=== PATIENT | male | born 1965 | race Caucasian/White ===

== ENCOUNTER 2023-05-19 15:41 | Inpatient (IN) | payer SELFPAY ==
[~2023-05-19] VITALS: Ht 170.2 cm; Wt 76.7 kg
[2023-05-19 15:54] VITALS: BP 107/66; PULSE 96; RESP 18; TEMP 98.1; O2SAT 98
[2023-05-19] MEDS ORDERED: LORazepam 2 MG/ML VIAL IVP ONE ×3 (15:55→18:05)
[2023-05-19] MEDS ORDERED: LORazepam 2 MG/ML VIAL ONE (15:58)
[2023-05-19] MEDS ORDERED: NACL 0.9% 1,000 ML IV ONE (16:20)
[2023-05-19] MEDS ORDERED: HALOPERIDOL IM 5 MG/ML VIAL IM ONE (17:35)
[2023-05-19] MEDS ORDERED: diphenhydrAMINE 50 MG/ML VIAL IVP ONE (18:05)
[2023-05-19 18:55] LABS: BILIRUBIN,URINE NEGATIVE (NEGATIVE); BLOOD, URINE TRACE-I (NEGATIVE); COLOR,URINE YELLOW (YELLOW); LEUKOCYTE ESTERASE ,URINE NEGATIVE (NEGATIVE); NITRITE, URINE NEGATIVE (NEGATIVE); PROTEIN,URINE TRACE (NEGATIVE); UGLUCOSE NEGATIVE (NEGATIVE); UROBILINOGEN,URINE 0.2 EU/dL (0.2 - 1)
[2023-05-19 19:13] LABS: AMPHETAMINE, URINE NEGATIVE ng/ml (NEG <=1000); BARBITURATE, URINE POSITIVE ng/ml (NEG <=200); BENZODIAZEPINE, URINE POSITIVE ng/mL (NEG <=200); CANNABINOID, URINE POSITIVE ng/mL (NEG <=50); COCAINE, URINE NEGATIVE ng/mL (NEG <=300); OPIATE, URINE NEGATIVE ng/mL (NEG <=2000); PHENCYCLIDINE SCREEN,URINE NEGATIVE ng/mL (NEG <=25)
[2023-05-19 19:14] LABS: APPEARANCE,URINE CLOUDY (CLEAR)
[2023-05-19 19:23] LABS: ALANINE AMINOTRANSFERASE 22 U/L (12-78); ALBUMIN 3.9 g/dL (3.4-5.0); ALCOHOL, BLOOD < 3 mg/dL (<10); ALKALINE PHOSPHATASE 148 U/L (50-136); ANION GAP 15.9 (8-16); ASPARTATE AMINOTRANSFERASE 29 U/L (15-37); CALCIUM 8.6 mg/dL (8.5-10.1); CARBON DIOXIDE 22.1 mmol/L (21-32); CHLORIDE 106 mmol/L (98-107); GFR ARICAN-AMERICAN 99 mL/min (>90); GFR NON ARICAN-AMERICAN 82 mL/min (>90); GLUCOSE 110 mg/dL (74-106); LIPASE 21 U/L (16-77); SODIUM SERUM 140 mmol/L (136-145); TOTAL BILIRUBIN 0.3 mg/dL (0.0-1.0); TOTAL PROTEIN, SERUM 7.5 g/dL (6.4-8.2); UREA NITROGEN, BLOOD 10 mg/dL (7-18)
[2023-05-19 19:27] LABS: ACETAMINOPHEN < 0.5 ug/ml (10-30); SALICYLATE < 2.8 mg/dL (2.8-20.0)
[2023-05-19 19:30] LABS: BASOPHILS % (AUTO) 0.1 % (0.0-2.0); HEMATOCRIT 41.9 % (36-52); HEMOGLOBIN 13.6 g/dL (12.0-18.0); LYMPHOCYTES # (AUTO) 0.7 K/uL (2.0-11.5); LYMPHOCYTES % (AUTO) 4.3 % (20.5-51.1); MEAN CORPUSCULAR HEMOGLOBIN 29 pg (27-31); MEAN CORPUSCULAR HGB CONC 32 g/dL (33-37); MEAN CORPUSCULAR VOLUME 88.5 fL (80-94); MONOCYTES # (AUTO) 0.9 K/uL (0.8-1.0); MONOCYTES % (AUTO) 5.2 % (1.7-9.3); NEUTROPHILS # (AUTO) 15.5 K/uL (1.8-7.7); NEUTROPHILS % (AUTO) 90.4 % (42.2-75.2); PLATELET COUNT (AUTO) 205 K/uL (140-450); RED BLOOD CELL COUNT(AUTO) 4.74 MIL/uL (4.20-6.10); WHITE BLOOD COUNT (AUTO) 17.2 K/uL (4.8-10.8)
[2023-05-19 19:38] LABS: BACTERIA,URINE 1+ /HPF (None Seen); MUCUS,URINE 1+ /LPF (None Seen); RBC,URINE 0-5 /HPF (0-5); SQUAMOUS EPITHELIAL CELL,UR 0-3 (FEW) /LPF (0-3 (FEW)); WBC,URINE 0-5 /HPF (0-5)
[2023-05-19 19:41] LABS: OTHER CRYSTALS,URINE CALCIUM CARBONATE 1+ /HPF (None Seen); URINE AMORPHOUS URATE 2+ /HPF (None Seen)
[2023-05-19] MEDS ORDERED: NACL 0.9% IV ONE (20:00)
[2023-05-19] MEDS ORDERED: PHENYTOIN IV ONE (20:00)
[2023-05-19] MEDS ORDERED: PHENYTOIN 250 MG/5 ML VIAL IV ONE (20:24)
[2023-05-19 23:48] VITALS: BP 125/69; PULSE 70; PULSE 71; RESP 18; TEMP 98.2; O2SAT 96; O2SAT 97
[2023-05-19 23:49] VITALS: PULSE 73
[2023-05-20 00:03] VITALS: PULSE 82
[2023-05-20] MEDS: NACL 0.9% 1,000 ML IV SCH ×2 (01:54→09:10)
[2023-05-20 04:00] VITALS: BP 127/69; PULSE 77; PULSE 82; PULSE 91; RESP 18; TEMP 98.7; O2SAT 97
[2023-05-20 08:00] VITALS: BP 113/70; PULSE 70; PULSE 74; RESP 17; TEMP 98.3; O2SAT 98
[2023-05-20] MEDS ORDERED: PHEN100C3 PO (09:53)
[2023-05-20 12:00] VITALS: BP 122/68; PULSE 68; PULSE 73; RESP 19; TEMP 98.9; O2SAT 96
[2023-05-20 15:46] VITALS: BP 122/68; PULSE 73; RESP 19; TEMP 98.9
== END 2023-05-20 16:42 | disposition home or self-care (01) | DRG 101 ==
LOC: MED 15:41 → MTU 23:10
PROVIDERS: ADMIT Family Medicine; ATTEND Family Medicine
DX: G40.409 Other generalized epilepsy and epileptic syndromes, not intractable, without status epilepticus (principal)
CPT/HCPCS: 36415; 70450; 71045; 80053; 80185; 80305; 81001; 83690; 84484; 85025; 87081; 87086; 93005; 96365; 96372; 96375; 96376; 99291; G0480; G0482; J1165; J1200; J1630; J2060; Q0092

== ENCOUNTER 2023-11-20 16:24 | Emergency (ER) | payer SELFPAY ==
[~2023-11-20] VITALS: Ht 167.6 cm; Wt 70.3 kg
[~2023-11-20 16:24] MED LIST: PHEN100C3 PO
[2023-11-20 16:44] VITALS: PULSE 80; RESP 18; TEMP 98; O2SAT 99
[2023-11-20 17:42] LABS: BASOPHILS # (AUTO) 0.1 K/uL (0.00-0.22); BASOPHILS % (AUTO) 1.2 % (0.0-2.0); EOSINOPHILS # (AUTO) 0.2 K/uL (0-0.4); EOSINOPHILS % (AUTO) 2.4 % (0.0-4.0); HEMATOCRIT 40.3 % (36-52); MEAN CORPUSCULAR HEMOGLOBIN 28 pg (27-31); MEAN CORPUSCULAR HGB CONC 32 g/dL (33-37); MEAN CORPUSCULAR VOLUME 86.9 fL (80-94); MONOCYTES # (AUTO) 0.7 K/uL (0.8-1.0); MONOCYTES % (AUTO) 6.9 % (1.7-9.3); NEUTROPHILS # (AUTO) 7.3 K/uL (1.8-7.7); NEUTROPHILS % (AUTO) 70.5 % (42.2-75.2); PLATELET COUNT (AUTO) 191 K/uL (140-450); RED BLOOD CELL COUNT(AUTO) 4.64 MIL/uL (4.20-6.10); RED CELL DISTRIBUTION WIDTH 14.7 % (11.6-13.7); WHITE BLOOD COUNT (AUTO) 10.3 K/uL (4.8-10.8)
[2023-11-20 17:56] LABS: ANION GAP 19.9 (8-16); CALCIUM 8.9 mg/dL (8.5-10.1); CARBON DIOXIDE 19.8 mmol/L (21-32); CREATININE 0.9 mg/dL (0.6-1.3); POTASSIUM 3.7 mmol/L (3.5-5.1)
[2023-11-20 18:52] VITALS: BP 110/71; PULSE 78; RESP 16; TEMP 98; O2SAT 99
[2023-11-21] MEDS ORDERED: PHEN100C3 PO (15:30)
== END 2023-11-20 18:52 | disposition home or self-care (01) ==
LOC: MED 16:24
DX: G40.509 Epileptic seizures related to external causes, not intractable, without status epilepticus (principal); Z86.39 Personal history of other endocrine, nutritional and metabolic disease; Z79.899 Other long term (current) drug therapy
CPT/HCPCS: 36415; 80048; 85025; 99283

== ENCOUNTER 2023-11-20 23:31 | Inpatient (IN) | payer SELFPAY ==
[~2023-11-20] VITALS: Ht 160 cm; Wt 63.5 kg
[2023-11-20 23:37] VITALS: BP 130/79; PULSE 72; RESP 20; TEMP 97.6; O2SAT 99
[2023-11-20 23:45] VITALS: O2SAT 98
[2023-11-20] MEDS ORDERED: levETIRAcetam 100 MG/ML VIAL IV ONE (23:50)
[2023-11-21] VITALS (7 sets, daily range): BP systolic 108–122; BP diastolic 60–65; PULSE 68–113; RESP 16–18; TEMP 97.6–98.3; O2SAT 94–98
[2023-11-21] MEDS: levETIRAcetam 500 MG in NACL 0.9% 100 ML IV ONE (00:13)
[2023-11-21 00:19] LABS: BASOPHILS % (AUTO) 0.4 % (0.0-2.0); EOSINOPHILS % (AUTO) 0.4 % (0.0-4.0); HEMATOCRIT 41.4 % (36-52); HEMOGLOBIN 13.7 g/dL (12.0-18.0); LYMPHOCYTES # (AUTO) 0.9 K/uL (2.0-11.5); LYMPHOCYTES % (AUTO) 8.3 % (20.5-51.1); MEAN CORPUSCULAR HEMOGLOBIN 29 pg (27-31); MEAN CORPUSCULAR HGB CONC 33 g/dL (33-37); MEAN CORPUSCULAR VOLUME 88.6 fL (80-94); MONOCYTES # (AUTO) 0.5 K/uL (0.8-1.0); MONOCYTES % (AUTO) 4.9 % (1.7-9.3); NEUTROPHILS # (AUTO) 9.3 K/uL (1.8-7.7); PLATELET COUNT (AUTO) 214 K/uL (140-450); RED BLOOD CELL COUNT(AUTO) 4.67 MIL/uL (4.20-6.10); RED CELL DISTRIBUTION WIDTH 14.6 % (11.6-13.7); WHITE BLOOD COUNT (AUTO) 10.8 K/uL (4.8-10.8)
[2023-11-21 00:29] LABS: ANION GAP 16.6 (8-16); CALCIUM 9.1 mg/dL (8.5-10.1); CARBON DIOXIDE 23.9 mmol/L (21-32); POTASSIUM 4.5 mmol/L (3.5-5.1)
[2023-11-21] MEDS ORDERED: ONDANSETRON 4 MG/2 ML VIAL IVP PRN (00:30)
[2023-11-21] MEDS ORDERED: LORazepam 2 MG/ML VIAL IVP PRN (00:30)
[2023-11-21] MEDS ORDERED: HYDROcodone/APAP 5/325 MG 1 TAB TAB PO PRN (00:30)
[2023-11-21] MEDS: ACETAMINOPHEN 325 MG TAB PO PRN (00:56)
[2023-11-21] MEDS: NACL 0.9% 1,000 ML IV SCH (04:07)
[2023-11-21] MEDS ORDERED: levETIRAcetam 500 MG in NACL 0.9% 100 ML IV SCH (09:00)
[2023-11-21] MEDS: levETIRAcetam 500 MG in NACL 0.9% 100 ML IV SCH (09:39)
[2023-11-21] MEDS ORDERED: PHEN100C3 PO (15:30)
[2023-11-21 16:44] LABS: AMPHETAMINE, URINE NEGATIVE ng/ml (NEG <=1000); BARBITURATE, URINE POSITIVE ng/ml (NEG <=200); BENZODIAZEPINE, URINE NEGATIVE ng/mL (NEG <=200); CANNABINOID, URINE POSITIVE ng/mL (NEG <=50); COCAINE, URINE NEGATIVE ng/mL (NEG <=300); OPIATE, URINE NEGATIVE ng/mL (NEG <=2000); PHENCYCLIDINE SCREEN,URINE NEGATIVE ng/mL (NEG <=25)
== END 2023-11-21 19:20 | disposition home or self-care (01) | DRG 101 ==
LOC: MED 23:31 → MTU 11-21 00:29
PROVIDERS: ADMIT Family Medicine; ATTEND Family Medicine
DX: G40.909 Epilepsy, unspecified, not intractable, without status epilepticus (principal); Z91.199 Patient's noncompliance with other medical treatment and regimen due to unspecified reason
CPT/HCPCS: 36415; 80048; 80305; 85025; 87081; 96365; 99285; J1953

== ENCOUNTER 2024-03-28 19:08 | Emergency (ER) | payer SELFPAY ==
[~2024-03-28] VITALS: Ht 167.6 cm; Wt 63.5 kg
[2024-03-28 19:12] VITALS: BP 120/67; PULSE 82; RESP 18; O2SAT 99
--- NOTE | 2024-03-28 19:20 | NUR ---
OLENA ALS TO ER BED 5
--- NOTE | 2024-03-28 19:25 | NUR ---
seen and examined by dana, with orders and carried out
--- NOTE | 2024-03-28 19:30 | NUR ---
patients refused accu check, ERMD noted.
[2024-03-28] MEDS ORDERED: PHEN100C3 PO (19:35)
--- NOTE | 2024-03-28 19:40 | NUR ---
medicated as per ERMD's order, tolerated well.
[2024-03-28] MEDS: PHENYTOIN 100 MG CAPER PO ONE (19:42)
[2024-03-28 20:15] VITALS: BP 116/69; PULSE 89; RESP 17; TEMP 98; O2SAT 99
--- NOTE | 2024-03-28 20:15 | NUR ---
Patient discharged with v/s stable. Written and verbal after care instructions given and explained. Patient alert, oriented and verbalized understanding of instructions. Ambulatory with steady gait. All questions addressed prior to discharge. ID band removed. Patient advised to follow up with PMD. Rx of DILANTIN given. Patient educated on indication of medication including possible reaction and side effects. Opportunity to ask questions provided and answered.
== END 2024-03-28 20:15 | disposition home or self-care (01) ==
LOC: MED 19:08
DX: R56.9 Unspecified convulsions (principal); R32 Unspecified urinary incontinence; Z79.899 Other long term (current) drug therapy
CPT/HCPCS: 99283